=== PATIENT | male | born 1945 | race Caucasian/White ===

== ENCOUNTER 2023-12-15 10:13 | Outpatient (CLI) | payer MEDICARE | END 2023-12-15 10:14 | disposition home or self-care (01) | LOC: BICRAD 10:13 | PROVIDERS: ATTEND Nurse Practitioner Family | DX: Z01.818 Encounter for other preprocedural examination (principal) | CPT/HCPCS: 71046 ==

== ENCOUNTER 2023-12-22 09:49 | Emergency (ER) | payer MEDICARE | END 2023-12-22 11:35 | disposition home or self-care (01) | LOC: ERS 09:49 | DX: R60.0 Localized edema (principal); I10 Essential (primary) hypertension ==

== ENCOUNTER 2024-01-17 07:34 | Outpatient (CLI) | payer MEDICARE | END 2024-01-17 07:35 | disposition home or self-care (01) | LOC: BICMRI 07:34 | PROVIDERS: ATTEND Orthopaedic Surgery | DX: M54.50 Low back pain, unspecified (principal); M47.816 Spondylosis without myelopathy or radiculopathy, lumbar region; Z98.1 Arthrodesis status | CPT/HCPCS: 72148 ==